=== PATIENT | male | born 1995 | race African-American/Black ===

== ENCOUNTER 2022-11-09 13:59 | Outpatient (REF) | payer OTHER, SELFPAY ==
[2022-11-09 15:49] LABS: CT PCR NOT DETECTED (Not Detect.); NG PCR NOT DETECTED (Not Detect.)
== END 2022-11-09 14:00 | disposition home or self-care (01) ==
LOC: HO.LNP 13:59
PROVIDERS: Visit Provider Nurse Practitioner Family
DX: A55 Chlamydial lymphogranuloma (venereum) (principal)
CPT/HCPCS: 0353U

== ENCOUNTER 2022-12-17 13:15 | Outpatient (REF) | payer OTHER, SELFPAY ==
[2022-12-17 15:40] LABS: CT PCR NOT DETECTED (Not Detect.); NG PCR NOT DETECTED (Not Detect.)
[2022-12-18 07:50] LABS: Syphilis Screen Nonreactive (Nonreactive)
[2022-12-26 10:53] LABS: HSV 1 IgM IFA Negative (Negative); HSV 2 IgM IFA Negative (Negative)
== END 2022-12-17 13:16 | disposition home or self-care (01) ==
LOC: HO.HMGCLDS 13:15
PROVIDERS: Visit Provider Physician Assistant
DX: Z20.2 Contact with and (suspected) exposure to infections with a predominantly sexual mode of transmission (principal)
CPT/HCPCS: 0353U; 36415; 86695; 86696; 86780